=== PATIENT | female | born 1950 | race American Indian/Alaskan Native ===

== ENCOUNTER 2019-07-04 10:25 | Outpatient (CLI) | payer MEDICARE, OTHER ==
--- NOTE | 2019-07-04 15:44 | Mammography Report ---
RIGHT DIGITAL DIAGNOSTIC MAMMOGRAM WITH CAD 07/04/2019 RIGHT COMPLETE BREAST ULTRASOUND INDICATION: The patient was referred for evaluation of the right breast after small nodules were iden tified on a recent CT scan at [place]. F/u mammogram TECHNIQUE: Digital mammographic imaging was performed. This examination was interpreted with the yaron efit of Computer-Aided Detection (CAD) analysis. COMPARISON: 12/13/2018, 12/10/2017 and 12/08/2016 mammograms and report of a [place] CT Chest 04/22/2019 FINDINGS: Breast Density: There are scattered areas of fibroglandular density. MAMMOGRAPHIC FINDINGS: There is no evidence of dominant mass, suspicious calcifications or architectu ral distortion in the right breast. ULTRASOUND FINDINGS: Complete sonographic evaluation of all 4 quadrants and retroareolar region was p erformed. Ultrasound of the right breast demonstrated a 3 mm benign cyst at 2:00 4 cm from the nipp le and a 4 mm benign cyst at 7:00 5 cm from the nipple. A solid shadowing round hypoechoic mass at 10 :00 5 cm from the nipple correlates with a mammographic mass which has been stable over time. No othe r mass or suspicious finding. IMPRESSION: Benign cysts and a benign 5 mm nodule at 10:00 5 cm from the nipple. Follow up recommendation: Routine yearly BI-RADS Category 2: Benign. A "normal" or negative report should not discourage follow up or biopsy of a clinically significant f inding. A written summary of these findings will be mailed to the patient. The patient will be entered into a mammography reporting system which will generate a reminder letter for the patient's next appointmen t at the appropriate interval. According to the [employer], yearly mammograms are recommended starting at age 40 and continuing as long as a woman is in good health. Breast MRI is recommended for women with an alda roximately 20-25% or greater lifetime risk of breast cancer, including women with a strong family his tory of breast or ovarian cancer and women who have been treated for Hodgkin's disease. Signer Name: Armand Garcia MD Signed: 07/04/2019 3:40 PM Workstation Name: [id number]
== END 2019-07-04 10:26 | disposition home or self-care (01) ==
LOC: SPVWC 10:25
PROVIDERS: ATTEND Surgery
DX: N60.01 Solitary cyst of right breast (principal); N63.11 Unspecified lump in the right breast, upper outer quadrant; C50.412 Malignant neoplasm of upper-outer quadrant of left female breast; Z85.00 Personal history of malignant neoplasm of unspecified digestive organ

== ENCOUNTER 2020-12-17 13:26 | Outpatient (CLI) | payer MEDICARE, OTHER ==
--- NOTE | 2020-12-18 10:02 | Mammography Report ---
DIGITAL SCREENING MAMMOGRAM WITH CAD, 12/17/2020 CLINICAL INFORMATION / INDICATION: Routine screening mammography. TECHNIQUE: Digital bilateral 2D mammography was obtained in the craniocaudal and mediolateral obliqu e projections. This examination was interpreted with the benefit of Computer-Aided Detection analysis . COMPARISON: 12/15/2019, 07/04/2019, 12/13/2018 FINDINGS: Breast Density: There are scattered areas of fibroglandular density. No dominant mass, suspicious calcifications, or architectural distortion in either breast. Scarring is again seen along the upper outer left breast. IMPRESSION: No mammographic evidence of malignancy. Follow up recommendation: Routine yearly BI-RADS Category 2: Benign. A "normal" or negative report should not discourage follow up or biopsy of a clinically significant f inding. A written summary of these findings will be mailed to the patient. The patient will be entered into a mammography reporting system which will generate a reminder letter for the patient's next appointmen t at the appropriate interval. The [employer] recommends yearly mammograms starting at age 40 and continuing as l [place] as a woman is in good health. Breast MRI is recommended for women with an approximate 20-25% or greater lifetime risk of breast cancer, including women with a strong family history of breast or ova konstantin cancer or who have been treated for Hodgkin's disease. Signer Name: Ulices Cantor MD Signed: 12/18/2020 9:57 AM Workstation Name: [id number]
== END 2020-12-17 13:27 | disposition home or self-care (01) ==
LOC: SPVWC 13:26
PROVIDERS: ATTEND Surgery
DX: Z12.31 Encounter for screening mammogram for malignant neoplasm of breast (principal); N64.89 Other specified disorders of breast
CPT/HCPCS: 77067